=== PATIENT | male | born 1985 | race Caucasian/White ===

== ENCOUNTER 2020-05-06 03:25 | Emergency (ER) | payer MEDICAID, SELFPAY ==
[~2020-05-06] VITALS: Ht 175.3 cm; Wt 77.3 kg
[2020-05-06 03:25] VITALS: BP 132/92
[2020-05-06] MEDS ORDERED: PENICILLIN V POTASSIUM 500 MG TAB PO ONE (03:45)
[2020-05-06] MEDS ORDERED: IBUPROFEN 600MG TAB PO ONE (03:45)
[2020-05-06] MEDS ORDERED: ACETAMINOPHEN 325 MG TAB PO ONE (03:45)
[2020-05-06] MEDS ORDERED: IBUP-1022 PO (03:46)
[2020-05-06] MEDS ORDERED: PENI500T PO (03:47)
== END 2020-05-06 04:13 | disposition home or self-care (01) ==
LOC: M ED 03:25
DX: K08.89 Other specified disorders of teeth and supporting structures (principal); F17.200 Nicotine dependence, unspecified, uncomplicated